=== PATIENT | male | born 1970 | race American Indian/Alaskan Native ===

== ENCOUNTER 2018-03-15 08:44 | Emergency (ER) | payer SELFPAY ==
[2018-03-15 08:49] VITALS: BP 135/75
[2018-03-15] MEDS ORDERED: TYLENOL PO ONE (09:28)
[2018-03-15] MEDS ORDERED: NACL 0.9% 500 ML 500 ML IV ONE (09:29)
--- NOTE | 2018-03-15 09:35 | Emergency Department Report ---
ED Rash HPI - HPI Chief Complaint: Skin Rash Stated Complaint: FEVER/BLISTERS ON FACE Time Seen by Provider: 03/15/18 09:19 Duration: 3 Days Location: Head (face), Chest, Back, Upper Extremities (bilateral upper extremities) Suspected Cause: Unknown Rash Symptoms: Yes Itching, Yes Blistering, Yes Fever, No Facial Swelling, No Tongue/Oral Swelling, No Breathing Difficulties, No Choking Sensation, No Wheezing/Dyspnea, No Peeling, No Lightheaded, No Malaise, No Myalgias Severity: moderate Other History: 47-year-old male with no significant past medical history came in complaining of rash on face, back, and chest for 3 days. Patient reports tooth infection and went to urgent care yesterday and started on amoxicillin and ibuprofen. Patient reports rash began prior to starting antibiotics. He states rash is spreading so he decided come to the ER. 3 days ago rash started out on hands and bilateral upper extremity. When he woke up 2 days ago the rash spread to the face and chest. The rash is pruritic. ED Review of Systems ROS: Stated complaint: FEVER/BLISTERS ON FACE Other details as noted in HPI Constitutional: denies: chills, fever Respiratory: denies: cough, shortness of breath, wheezing Cardiovascular: denies: chest pain, palpitations, edema, syncope Gastrointestinal: denies: abdominal pain, nausea, diarrhea Skin: rash (periodic rash with blisters to face chest bilateral upper extremity) . denies: lesions Neurological: denies: headache, weakness, numbness, paresthesias Psychiatric: denies: anxiety, depression ED Past Medical Hx - Past Medical History Previous Medical History?: No - Surgical History Past Surgical History?: No - Social History Smoking Status: Current Every Day Smoker Substance Use Type: None - Medications Home Medications: Home Medications Medication Instructions Recorded Confirmed Last Taken Type methylPREDNISolone [Medrol] 4 mg PO DAILY #1 tab.ds.pk 03/15/18 Unknown Rx Rash Exam - Exam General: Vital signs noted. No distress. Alert and acting appropriately. HEENT: No Periorbital Edema, No Conjuctival Injection, No Chemosis, No Perioral Edema, No Tongue Edema (+edema on left upper mucosa, dental caries), No Uvular Edema, No Compromised Airway, No Drooling Lungs: Yes Good Air Exchange (Normal Breath Sounds), No Wheezes, No Ronchi, No Stridor, No Cough, No Labored Respirations, No Retractions, No Use of Accessory Muscles, No Other Abnormal Lung Sounds Heart: Yes Regular, No Murmur Skin: Yes Maculopapular Rash (multiple superficial 3 mm pustules to face, anterior trunk, bilateral upper extremity), No Urticarial Rash, No Morbilliform rash, No Bulla(e), No Excoriations, No Weeping, No Tenderness, No Erythema, No Edema, No Encrustations, No Other ED Course Vital Signs 03/15/18 08:46 Temperature 99.3 F Pulse Rate 86 Respiratory 16 Rate Blood Pressure 135/75 O2 Sat by Pulse 100 Oximetry ED Medical Decision Making - Lab Data Result diagrams: 03/15/18 09:35 03/15/18 10:11 - Medical Decision Making This is a 47-year-old male who presents with rash to face, trunk, and BUE for 3 days. Patient examined by me. No distress noted. Vitals stable. Patient is drinking fluids w/o distress in ER. Obtain CBC, CMP, lactic acid. Elevated liver enzymes possibly from IBU and low WBC's. All other labs unremarkable. Continue amoxicillin and ibuprofen. Start Medrol Dose brianne for allergic dermatitis. Physical assessment susceptible of allergic contact dermatitis. F/ u with PCP and dentist in 24-72 hours. Discussed plan with patient and agreed to plan. Critical care attestation.: If time is entered above; I have spent that time in minutes in the direct care of this critically ill patient, excluding procedure time. ED Disposition Clinical Impression: Tooth caries, Liver enzyme elevation Allergic contact dermatitis Qualifiers: Contact dermatitis trigger: unspecified trigger Qualified Code(s): L23.9 - Allergic contact dermatitis, unspecified cause Disposition: TO HOME OR SELFCARE Is pt being admited?: No Does the pt Need Aspirin: No Condition: Stable Instructions: Contact Dermatitis (ED) Additional Instructions: Continue amoxicillin as prescribed from dentist. Continue taking ibuprofen for pain every 8 hours. Follow-up with primary care provider and dentist in the next 2-3 days. Return to ER if rash is not improving with current medication or if difficulty swallowing, fever, shortness of breath, and chest pain. Prescriptions: methylPREDNISolone [Medrol] 4 mg PO DAILY #1 tab.ds.pk Referrals: [facility] [Outside] - 3-5 Days [facility] [Outside] - 3-5 Days Time of Disposition: 11:07 Print Language: SETSWANA
--- NOTE | 2018-03-15 09:35 | Emergency Department Report ---
Blank Doc - Documentation Documentation: 47-year-old male with no significant past medical history came in complaining of rash on his face back and chest for 4 days. Patient states that he's had a bad tooth infection went to urgent care yesterday and was given amoxicillin and he states is not getting better so he decided come to the ER. Patient states that the rash is itchy at times. Patient states it feels like itching. Physical exam: Mouth: + left upper gum erythema, no cellulitis noted, no abscess noted, + bad teeth noted
[2018-03-15] MEDS ORDERED: ROCEPHIN/NS 1 GM/50 ML 1 GM/50 ML BAG IV ONE (09:36)
[2018-03-15 09:45] LABS: Basophils % (Auto) 0.9 % (0.0-1.8); Eosinophils # (Auto) 0.1 K/mm3 (0.0-0.4); Eosinophils % (Auto) 1.6 % (0.0-4.3); Hematocrit 42.5 % (35.5-45.6); Hemoglobin 13.8 gm/dl (11.8-15.2); Lymphocytes # (Auto) 0.9 K/mm3 (1.2-5.4); Lymphocytes % (Auto) 22.1 % (13.4-35.0); Mean Corpuscular HGB Conc 33 % (32-34); Mean Corpuscular Hemoglobin 29 pg (28-32); Mean Corpuscular Volume 88 fl (84-94); Monocytes # (Auto) 0.6 K/mm3 (0.0-0.8); Monocytes % (Auto) 15.5 % (0.0-7.3); Red Blood Count 4.82 M/mm3 (3.65-5.03); Red Cell Distribution Width 13.7 % (13.2-15.2)
[2018-03-15] MEDS ORDERED: cefTRIAXone 1 GM in NACL 0.9% 20 ML IV NR (10:00)
[2018-03-15 10:41] LABS: Platelet Count 188 K/mm3 (140-440)
[2018-03-15 10:45] LABS: Alanine Aminotransferase 65 units/L (7-56); Albumin 4.2 g/dL (3.9-5); BUN/Creatinine Ratio 17; Blood Urea Nitrogen 15 mg/dL (9-20); Calcium 8.6 mg/dL (8.4-10.2); Hemolysis Index 2
== END 2018-03-15 12:13 | disposition home or self-care (01) ==
LOC: ED 08:44
DX: K02.9 Dental caries, unspecified (principal); R74.8 Abnormal levels of other serum enzymes; L23.9 Allergic contact dermatitis, unspecified cause; F17.200 Nicotine dependence, unspecified, uncomplicated
CPT/HCPCS: 36415; 80053; 82140; 85025; 96365; 96375; 99283; J0696; J2930; J7040